=== PATIENT | female | born 2000 | race Native Hawaiian/Other Pacific Islander ===

== ENCOUNTER 2021-04-05 11:07 | Outpatient (CLI) | payer BC | END 2021-04-05 19:10 | disposition home or self-care (01) | LOC: US 11:07 | PROVIDERS: ATTEND Nurse Practitioner Family | DX: R10.32 Left lower quadrant pain (principal) ==

== ENCOUNTER 2021-08-25 11:25 | Emergency (ER) | payer BC ==
[~2021-08-25] VITALS: Ht 157.5 cm; Wt 86.2 kg
[2021-08-25 11:31] VITALS: TEMP 99.1
[2021-08-25 12:19] VITALS: BP 121/79
== END 2021-08-25 12:19 | disposition home or self-care (01) ==
LOC: ED 11:25
DX: S93.692A Other sprain of left foot, initial encounter (principal); S93.492A Sprain of other ligament of left ankle, initial encounter; W01.0XXA Fall on same level from slipping, tripping and stumbling without subsequent striking against object, initial encounter; Y92.098 Other place in other non-institutional residence as the place of occurrence of the external cause
CPT/HCPCS: 99283

== ENCOUNTER 2022-05-20 11:20 | Outpatient (CLI) | payer BC | END 2022-05-20 19:11 | disposition home or self-care (01) | LOC: US 11:20 | PROVIDERS: ATTEND Family Medicine | DX: Z33.1 Pregnant state, incidental (principal); N93.9 Abnormal uterine and vaginal bleeding, unspecified ==